=== PATIENT | male | born 1975 | race Caucasian/White ===

== ENCOUNTER → 2017-08-23 | Outpatient (CLI) | payer BC ==
[~2017-08-23] MED LIST: CIPRO 500MG TA500 MG PO; MEDROL 4MG. DOSE4 MG PO; VICODIN 5/500 T1 TAB PO; ZITHROMAX Z PA250 MG PO
--- NOTE | 2017-08-23 11:10 | RADIOLOGY REPORT PS360 ---
LUMBAR SPINE 5 VIEWS Ordering Physician: Quinten Loyola MD Patient Age: 42 years: Male HISTORY: BILATERAL LOW BACK PAIN W/ LEFT SIDED SCIATICA TECHNIQUE: 5 view lumbar spine series COMPARISON :CT abdomen reconstructions November 2010 as well as a chest film from November 2010. FINDINGS There are 6 nonrib-bearing vertebra. L6 is transitional in nature with sacralization to the left yielding pseudoarthrosis appearance on left. L6 is lumbarized on the right transverse process does not articulate with the sacrum on right. The narrowing at L6/S1 reflect the transitional character L5/L6: slight narrowing posteriorly aspect L5-L6 disc, which was similar to previous studies. Disc bulge most of the right toe at L5/L6 seen on the previous studies along with some mild facet arthropathy and hypertrophy evident today as well. Findings more evident to the right. L4/5 disc intact. L3/4. And disc intact with only borderline disc space narrowing L2/3. Disc and vertebral bodies intact L1/2 disc intact. T12/L1 & T 11/12 borderline disc narrowing IMPRESSION....... No acute findings in the lumbar spine Note 6 nonrib-bearing lumbar-type lumbar vertebra. L6 with sacralization and pseudoarthrosis on the left.. .. Mild disc space narrowing L5/6 & L6 / S1 is similar to 2011 CT abdomen.. Developing facet arthropathy L5/6 & L6/S1
== END ==
LOC: RAD 09:36
DX: M54.42 Lumbago with sciatica, left side (principal)